=== PATIENT | male | born 1960 | race American Indian/Alaskan Native ===

== ENCOUNTER 2017-06-30 20:34 | Emergency (ER) | payer OTHER ==
[2017-06-30 21:07] VITALS: BP 143/81
[2017-06-30] MEDS ORDERED: NORCO 5/325 PO ONE (21:39)
--- NOTE | 2017-06-30 21:46 | Emergency Department Report ---
HPI - General Chief Complaint: Multiple Trauma Time Seen by Provider: 06/30/17 21:32 - HPI HPI: 57-year-old -[place] male presents to the emergency department through triage with complaint of a fall from 8 feet up off of a scaffold onto the right side of his body. He thinks that he did hit his head and had some loss of consciousness. He was found by one of his coworkers who helped him up, into the car, into the hospital. He complains of some pain to the back of the head, the right side of the neck, the right shoulder, the right wrist, the right hip, and the right side of his mid to lower back. He did not take anything for her symptoms prior to presentation. He denies any past medical history. He does not have a primary care physician. This event occurred around 7:30 PM this evening. ED Past Medical Hx - Past Medical History Previous Medical History?: No - Surgical History Past Surgical History?: No - Social History Smoking Status: Current Every Day Smoker Substance Use Type: Marijuana - Medications Home Medications: Home Medications Medication Instructions Recorded Confirmed Last Taken Type HYDROcodone/APAP 5-325 [Henderson 1 each PO Q6HR PRN #10 tablet 07/01/17 Unknown Rx 5/325] ED Review of Systems ROS: Stated complaint: FALL HEAD BACK HIP EYE BLURRY Other details as noted in HPI Comment: All other systems reviewed and negative Constitutional: denies: chills, fever Eyes: denies: eye pain, eye discharge, vision change ENT: denies: ear pain, throat pain Respiratory: denies: cough, shortness of breath, wheezing Cardiovascular: denies: chest pain, palpitations Gastrointestinal: denies: abdominal pain, nausea, diarrhea Genitourinary: denies: urgency, dysuria Musculoskeletal: back pain, arthralgia, myalgia Skin: denies: rash, lesions Neurological: headache. denies: numbness Physical Exam - Physical Exam Vital Signs: Vital Signs 06/30/17 21:01 Temperature 98.6 F Pulse Rate 92 H Respiratory 18 Rate Blood Pressure 143/81 O2 Sat by Pulse 97 Oximetry ED Course Vital Signs 06/30/17 21:01 Temperature 98.6 F Pulse Rate 92 H Respiratory 18 Rate Blood Pressure 143/81 O2 Sat by Pulse 97 Oximetry ED Medical Decision Making - Lab Data Result diagrams: 06/30/17 21:40 06/30/17 21:40 Critical care attestation.: If time is entered above; I have spent that time in minutes in the direct care of this critically ill patient, excluding procedure time. ED Disposition Clinical Impression: Right hip pain Fall from scaffold Qualifiers: Encounter type: initial encounter Qualified Code(s): W12.XXXA - Fall on and from scaffolding, initial encounter Headache Qualifiers: Headache type: unspecified Headache chronicity pattern: unspecified pattern Right shoulder pain Qualifiers: Chronicity: acute Qualified Code(s): M25.511 - Pain in right shoulder Back pain Qualifiers: Back pain location: low back pain Chronicity: acute Back pain laterality: right Sciatica presence: without sciatica Qualified Code(s): M54.5 - Low back pain Disposition: TO HOME OR SELFCARE Is pt being admited?: No Condition: Stable Instructions: Arthralgia (ED), Fall Prevention (ED), Back Pain (ED) Additional Instructions: Please follow-up with your primary care physician in the next few days. I have given you a referral for 2 different orthopedic groups to follow up regarding your joint pain after your fall. Return to the emergency Department with any worsening of her symptoms or any acute distress. You have been prescribed a medication that is sedating and therefore should not be taken prior to driving, working, and responsible for children and in no way should be mixed with alcohol of any quantity. Prescriptions: HYDROcodone/APAP 5-325 [Henderson 5/325] 1 each PO Q6HR PRN #10 tablet PRN Reason: Pain Referrals: WILFRED PARRA MD [Primary Care Provider] - 3-5 Days MOHAN WEBB MD [Staff Physician] - 3-5 Days [facility] [Provider Group] - 3-5 Days Time of Disposition: 00:43
[2017-06-30 21:55] LABS: Basophils # (Auto) 0.1 K/mm3 (0.0-0.1); Eosinophils # (Auto) 0.3 K/mm3 (0.0-0.4); Eosinophils % (Auto) 3.3 % (0.0-4.3); Hematocrit 43.7 % (35.5-45.6); Hemoglobin 14.7 gm/dl (11.8-15.2); Lymphocytes # (Auto) 2.4 K/mm3 (1.2-5.4); Lymphocytes % (Auto) 28.7 % (13.4-35.0); Mean Corpuscular HGB Conc 34 % (32-34); Mean Corpuscular Hemoglobin 34 pg (28-32); Mean Corpuscular Volume 103 fl (84-94); Monocytes # (Auto) 0.7 K/mm3 (0.0-0.8); Monocytes % (Auto) 8.6 % (0.0-7.3); Platelet Count 186 K/mm3 (140-440); Red Blood Count 4.26 M/mm3 (3.65-5.03); Red Cell Distribution Width 14.3 % (13.2-15.2)
[2017-06-30 22:12] LABS: Alanine Aminotransferase 13 units/L (7-56); Albumin 4.5 g/dL (3.9-5); BUN/Creatinine Ratio 18; Blood Urea Nitrogen 16 mg/dL (9-20); Calcium 9.2 mg/dL (8.4-10.2); Hemolysis Index 4
--- NOTE | 2017-07-01 00:16 | Cat Scan Report ---
FINAL REPORT EXAM: CT HEAD/BRAIN WO CON HISTORY: head pain, LOC s/p 8 ft fall TECHNIQUE: Standard unenhanced CT of the head at 5.0 millimeter axial increments. PRIORS: None. FINDINGS: The ventricular system is normal in size and configuration. There is no evidence for parenchymal volume loss. There is no evidence for mass lesion, mass effect, midline shift, acute intracranial hemorrhage, or acute ischemia/ infarction. No evidence for acute skull fracture is seen. No abnormality in the overlying scalp soft tissues is seen. Visualized paranasal sinuses are clear. IMPRESSION: Negative CT of the head. No acute intracranial process noted.
--- NOTE | 2017-07-01 00:16 | Cat Scan Report ---
FINAL REPORT EXAM: CT CERVICAL SPINE WO CON HISTORY: head pain, LOC s/p 8 ft fall TECHNIQUE: Standard CT cervical spine obtained at 2.5 mm axial increments. Coronal and sagittal reconstruction was also performed. PRIORS: None. FINDINGS: The vertebral bodies are intact. There is no evidence for acute fracture. There is no evidence for paravertebral soft tissue swelling. Alignment is maintained. There is moderate to severe disc space narrowing from C3 through C7. Large spurs anteriorly at C5 through C7 are noted. Facet joint degenerative changes at C7-T1 are noted, greater on the left. IMPRESSION: No acute abnormality of the cervical spine. Moderate to severe disc space narrowing from C3 through C7.
--- NOTE | 2017-07-01 00:17 | XRay Report ---
FINAL REPORT PROCEDURE: XR HIPS BILAT 2V W/PELVIS TECHNIQUE: Bilateral hip radiographs, 2 views each, including AP view of the pelvis. HISTORY: PAIN IN BACK, HIP S/P 8 FT FALL, +LOC COMPARISON: No prior studies are available for comparison. FINDINGS: Bilateral sacroiliac joints are unremarkable. Bilateral hip joints demonstrate normal alignment with normal joint spaces. There is evidence of subarticular cyst formation involving the right acetabulum. An acute fracture is not identified. Soft tissues are unremarkable. IMPRESSION: No acute fracture Subarticular cyst formation of right acetabulum most likely represents osteoarthritis.
--- NOTE | 2017-07-01 00:17 | XRay Report ---
FINAL REPORT PROCEDURE: XR SHOULDER 2+V RT TECHNIQUE: Right shoulder radiographs including AP views in internal and external rotation and abduction. CPT 45488 HISTORY: Shoulder pain COMPARISON: No prior studies are available for comparison. FINDINGS: Fracture (s) and/or Dislocation(s): None . Joint space(s): Narrowing of the acromioclavicular joint space is noted with mild degree osteophyte formation.. Soft tissues: Normal . Bone mineralization: Normal . Foreign bodies: None . IMPRESSION: Osteoarthritis right acromioclavicular joint.
--- NOTE | 2017-07-01 00:17 | XRay Report ---
FINAL REPORT PROCEDURE: XR CHEST ROUTINE 2V TECHNIQUE: PA and lateral chest radiographs were obtained. CPT 87847 HISTORY: Chest wall pain COMPARISON: No prior studies are available for comparison. FINDINGS: Heart: Normal. Mediastinum/Vessels: Normal. Lungs/Pleural space: Normal. Bony thorax: No acute osseous abnormality. Other: IMPRESSION: Normal examination.
--- NOTE | 2017-07-01 00:17 | XRay Report ---
FINAL REPORT PROCEDURE: XR SPINE LUMBOSACRAL 2-3V TECHNIQUE: Lumbar spine radiographs, including AP, lateral, and lumbosacral spot views. CPT 46975 HISTORY: pain in back and hip s/p 8 ft fall, +LOC COMPARISON: No prior studies are available for comparison. FINDINGS: Alignment: Normal. Vertebral body heights/Disk spaces: There is narrowing of the L5-S1 disc space with vacuum phenomenon.. Fracture(s): None. Facets: Normal. Bone mineralization: Normal. IMPRESSION: Degenerative disc disease at L5-S1.
--- NOTE | 2017-07-01 00:17 | Ultrasound Report ---
FINAL REPORT PROCEDURE: US ABDOMEN COMPLETE TECHNIQUE: Real-time sonography in multiple planes of the abdomen was performed with image documentation. CPT 67541 HISTORY: trauma, abd pain COMPARISON: No prior studies are available for comparison. FINDINGS: Liver: Normal size and echotexture with no evidence of cystic or solid mass lesions. Gallbladder: Fluid filled. No gallstones, wall thickening, pericholecystic fluid, or sonographic Scott's sign. Intrahepatic bile ducts: Normal caliber . Extrahepatic bile ducts: Normal caliber. Pancreas: Visualized pancreatic head and body demonstrate normal echotexture. Aorta: Proximal aorta measures 2.2 centimeters in diameter. Mid and distal aorta is not well visualized due to bowel gas.. IVC: Visualized portions appear normal. RIGHT kidney: Normal echotexture. No focal renal mass, calculus, or hydronephrosis. Length: 9.8 x 4.5 x 5.1cm. LEFT kidney: Normal echotexture. No focal renal mass, calculus, or hydronephrosis . Length: 10.2 x 5.1 x 5.6cm. Spleen: Normal size and echotexture. No focal lesions. Intraperitoneal fluid: None . Other: None . IMPRESSION: Unremarkable study.
--- NOTE | 2017-07-01 00:17 | Cat Scan Report ---
FINAL REPORT EXAM: CT FACIAL BONES WO CON HISTORY: head pain, LOC s/p 8 ft fall TECHNIQUE: Standard unenhanced CT facial bones at 2.5 mm axial increments with coronal and sagittal reconstruction PRIORS: None. FINDINGS: No evidence for acute bony fracture is noted. The frontal, ethmoid, maxillary, and sphenoid sinuses are clear with no evidence for air-fluid levels or mucosal thickening. Nasal septum is midline. The orbits are intact. The orbital globes are normal. The visualized mastoid air cells are also clear. No overlying soft tissue abnormality is seen. IMPRESSION: Normal CT of the facial bones. No evidence for acute fracture.
== END 2017-07-01 01:02 | disposition home or self-care (01) ==
LOC: ED 20:34
DX: M25.551 Pain in right hip (principal); M25.511 Pain in right shoulder; R51 Headache; F17.200 Nicotine dependence, unspecified, uncomplicated; F12.10 Cannabis abuse, uncomplicated
CPT/HCPCS: 36415; 70450; 70486; 71046; 72100; 72125; 73521; 76700; 80053; 82550; 85025; 86850; 86900; 86901; 99285

== ENCOUNTER 2020-09-09 11:39 | Emergency (ER) | payer SELFPAY ==
[2020-09-09] MEDS ORDERED: SODIUM CHLORIDE 0.9% 1000 ML 1,000 ML IV ONE (11:48)
[2020-09-09] MEDS ORDERED: fentaNYL 100 MCG/2 ML INJ IV ONE (11:48)
[2020-09-09] MEDS ORDERED: SODIUM CHLORIDE 0.9% 1000 ML 1,000 ML ONE (11:49)
[2020-09-09] MEDS ORDERED: fentaNYL 100 MCG/2 ML INJ ONE (11:49)
[2020-09-09 12:07] LABS: Basophils % (Auto) 0.5 % (0.0-1.8); Eosinophils # (Auto) 0.2 K/mm3 (0.0-0.4); Hematocrit 41.5 % (35.5-45.6); Hemoglobin 14.5 gm/dl (11.8-15.2); Lymphocytes # (Auto) 2.6 K/mm3 (1.2-5.4); Lymphocytes % (Auto) 32.4 % (13.4-35.0); Mean Corpuscular HGB Conc 35 % (32-34); Mean Corpuscular Volume 103 fl (84-94); Monocytes # (Auto) 0.6 K/mm3 (0.0-0.8); Monocytes % (Auto) 7.3 % (0.0-7.3); Platelet Count 213 K/mm3 (140-440); Red Blood Count 4.02 M/mm3 (3.65-5.03); Red Cell Distribution Width 14.8 % (13.2-15.2)
--- NOTE | 2020-09-09 12:07 | Emergency Department Report ---
HPI - General Chief Complaint: Fall Time Seen by Provider: 09/09/20 11:47 - HPI HPI: 60-year-old male with no known past medical history brought in by friend in his car after the patient was found down on the ground after a fall from a 25 feet high roof. The patient states that he was doing work on top of the roof when he discovered a wasps nest. He got startled and fell backwards off of the roof onto his back. He did lose consciousness for a few seconds. After regaining consciousness he says that he was unable to move or feel his feet. One of his friends found him on the ground like this and picked him up and put him in the passenger seat of his truck and drove him to our emergency room. The patient says that he is now regained sensation and motor function of his lower extremities but has paresthesias in his bilateral legs and feet. He also complains of neck pain, back pain involving both the lumbar and thoracic spine, and pain all over and all of his extremities. He denies any headache, vision change, double vision, chest pain, shortness of breath, abdominal pain, nausea/vomiting, focal weakness, saddle anesthesia, bowel/bladder incontinence/retention, or any other complaints. He says he does not take any daily medications. ED Past Medical Hx - Past Medical History Previous Medical History?: No - Surgical History Past Surgical History?: No - Social History Smoking Status: Current Every Day Smoker Substance Use Type: Marijuana - Medications Home Medications: Home Medications Medication Instructions Recorded Confirmed Last Taken Type HYDROcodone/APAP 5-325 [Lawrence 1 each PO Q6HR PRN #10 tablet 07/01/17 Unknown Rx 5/325] ED Review of Systems ROS: Stated complaint: FALL Other details as noted in HPI Constitutional: denies: chills, fever Eyes: denies: eye pain, vision change ENT: denies: throat pain, epistaxis, congestion Respiratory: denies: cough, shortness of breath Cardiovascular: denies: chest pain, palpitations Gastrointestinal: denies: abdominal pain, nausea, vomiting Genitourinary: denies: dysuria, frequency Musculoskeletal: back pain, other (neck pain, pain in b/l shoulders, hips, and ankles). denies: arthralgia Skin: denies: rash, lesions Neurological: paresthesias. denies: headache, weakness, numbness Physical Exam - Physical Exam Vital Signs: Vital Signs 09/09/20 09/09/20 09/09/20 11:47 12:00 12:30 Temperature Pulse Rate 65 67 66 Respiratory 17 26 H 13 Rate Blood Pressure 165/87 143/76 150/77 Blood Pressure [Right] O2 Sat by Pulse 94 96 96 Oximetry 09/09/20 09/09/20 12:35 18:28 Temperature 98.4 F Pulse Rate 56 L Respiratory 13 Rate Blood Pressure Blood Pressure 151/79 [Right] O2 Sat by Pulse 98 100 Oximetry Physical Exam: GENERAL: Well developed and well nourished. No acute distress. HEAD: Normocephalic. No obvious signs of trauma. No raccoon's eyes, alfonso sign, or hemotympanum ENT: Slightly dry mucous membranes. EYES: Extraocular movements are intact. Pupils are equal round and reactive to light bilaterally NECK: C-collar is in place. Trachea is midline. LUNGS: Nonlabored breathing. Equal chest rise bilaterally. Clear to auscultation bilaterally. CARDIOVASCULAR: Regular rate and rhythm. No murmurs or rubs. VASCULAR: Cap refill < 2 seconds. 2+ radial and DP pulses b/l ABDOMEN: Abdomen is soft and nondistended. There is no significant tenderness, guarding or rebound. SKIN: Skin is warm and dry NEURO: Patient is awake, alert, and oriented. powder coater II-XII grossly intact. No focal deficits. Normal motor exam throughout, although this is highly limited due to the patient's restricted range of motion secondary to pain. The patient has normal sensation to light touch throughout bilateral lower extremities, upper extremities, torso, and head/face. Normal speech. MUSCULOSKELETAL: The left lower extremity is externally rotated and slightly shortened compared to the right. Otherwise no gross deformities. Patient's pelvis is stable although he does have left hip tenderness. He has full strength and range of motion in all 5 fingers and toes as well as wrists bilaterally. The patient has diffuse tenderness of his bilateral ankles, knees, and hips. Unable to assess full range of motion of the bilateral shoulders due to the patient's pain. He has no focal tenderness of the shoulders, clavicles, or bilateral arms. Downgoing Babinski reflexes bilaterally. BACK/SPINE/RECTAL: The patient was rolled using spine precautions and there is midline tenderness noted throughout portions of both the lumbar and thoracic spine bilaterally without any palpable step-offs. Rectal examination reveals normal rectal tone. ED Medical Decision Making - Lab Data Result diagrams: 09/09/20 11:47 09/09/20 11:47 Lab Results 09/09/20 09/09/20 09/09/20 Range/Units 11:47 11:47 11:47 WBC 8.1 (4.5-11.0) K/mm3 RBC 4.02 (3.65-5.03) M/mm3 Hgb 14.5 (11.8-15.2) gm/dl Hct 41.5 (35.5-45.6) % MCV 103 H (84-94) fl MCH 36 H (28-32) pg MCHC 35 H (32-34) % RDW 14.8 (13.2-15.2) % Plt Count 213 (140-440) K/mm3 Lymph % (Auto) 32.4 (13.4-35.0) % Tillman % (Auto) 7.3 (0.0-7.3) % Eos % (Auto) 2.0 (0.0-4.3) % Baso % (Auto) 0.5 (0.0-1.8) % Lymph # (Auto) 2.6 (1.2-5.4) K/mm3 Tillman # (Auto) 0.6 (0.0-0.8) K/mm3 Eos # (Auto) 0.2 (0.0-0.4) K/mm3 Baso # (Auto) 0.0 (0.0-0.1) K/mm3 Seg Neutrophils % 57.8 (40.0-70.0) % Seg Neutrophils # 4.7 (1.8-7.7) K/mm3 PT 12.7 (12.2-14.9) Sec. INR 0.90 (0.87-1.13) APTT 27.3 (24.2-36.6) Sec. Sodium 142 (137-145) mmol/L Potassium 4.5 (3.6-5.0) mmol/L Chloride 107.6 H (98-107) mmol/L Carbon Dioxide 24 (22-30) mmol/L Anion Gap 15 mmol/L BUN 11 (9-20) mg/dL Creatinine 0.9 (0.8-1.3) mg/dL Estimated GFR > 60 ml/min BUN/Creatinine Ratio 12 % Glucose 97 (75-100) mg/dL Calcium 9.1 (8.4-10.2) mg/dL Total Bilirubin 0.30 (0.1-1.2) mg/dL AST 16 (5-40) units/L ALT 9 (7-56) units/L Alkaline Phosphatase 88 (35-129) units/L Total Creatine Kinase 63 (55-170) units/L Troponin T (0.00-0.029) ng/mL Total Protein 7.1 (6.3-8.2) g/dL Albumin 4.3 (3.9-5) g/dL Albumin/Globulin Ratio 1.5 % Urine Color (Yellow) Urine Turbidity (Clear) Urine pH (5.0-7.0) Ur Specific Gilmer (1.003-1.030) Urine Protein (Negative) mg/dL Urine Glucose (UA) (Negative) mg/dL Urine Ketones (Negative) mg/dL Urine Blood (Negative) Urine Nitrite (Negative) Urine Bilirubin (Negative) Urine Urobilinogen (<2.0) mg/dL Ur Leukocyte Esterase (Negative) Urine WBC (Auto) (0.0-6.0) /HPF Urine RBC (Auto) (0.0-6.0) /HPF U Epithel Cells (Auto) (0-13.0) /HPF Urine Opiates Screen Urine Methadone Screen Ur Barbiturates Screen Ur Phencyclidine Scrn Ur Amphetamines Screen U Benzodiazepines Scrn Urine Cocaine Screen U Marijuana (THC) Screen Drugs of Abuse Note Plasma/Serum Alcohol (0-0.07) % Blood Type Antibody Screen 09/09/20 09/09/20 09/09/20 Range/Units 11:47 11:47 11:47 WBC (4.5-11.0) K/mm3 RBC (3.65-5.03) M/mm3 Hgb (11.8-15.2) gm/dl Hct (35.5-45.6) % MCV (84-94) fl MCH (28-32) pg MCHC (32-34) % RDW (13.2-15.2) % Plt Count (140-440) K/mm3 Lymph % (Auto) (13.4-35.0) % Tillman % (Auto) (0.0-7.3) % Eos % (Auto) (0.0-4.3) % Baso % (Auto) (0.0-1.8) % Lymph # (Auto) (1.2-5.4) K/mm3 Tillman # (Auto) (0.0-0.8) K/mm3 Eos # (Auto) (0.0-0.4) K/mm3 Baso # (Auto) (0.0-0.1) K/mm3 Seg Neutrophils % (40.0-70.0) % Seg Neutrophils # (1.8-7.7) K/mm3 PT (12.2-14.9) Sec. INR (0.87-1.13) APTT (24.2-36.6) Sec. Sodium (137-145) mmol/L Potassium (3.6-5.0) mmol/L Chloride (98-107) mmol/L Carbon Dioxide (22-30) mmol/L Anion Gap mmol/L BUN (9-20) mg/dL Creatinine (0.8-1.3) mg/dL Estimated GFR ml/min BUN/Creatinine Ratio % Glucose (75-100) mg/dL Calcium (8.4-10.2) mg/dL Total Bilirubin (0.1-1.2) mg/dL AST (5-40) units/L ALT (7-56) units/L Alkaline Phosphatase (35-129) units/L Total Creatine Kinase (55-170) units/L Troponin T < 0.010 (0.00-0.029) ng/mL Total Protein (6.3-8.2) g/dL Albumin (3.9-5) g/dL Albumin/Globulin Ratio % Urine Color (Yellow) Urine Turbidity (Clear) Urine pH (5.0-7.0) Ur Specific Gilmer (1.003-1.030) Urine Protein (Negative) mg/dL Urine Glucose (UA) (Negative) mg/dL Urine Ketones (Negative) mg/dL Urine Blood (Negative) Urine Nitrite (Negative) Urine Bilirubin (Negative) Urine Urobilinogen (<2.0) mg/dL Ur Leukocyte Esterase (Negative) Urine WBC (Auto) (0.0-6.0) /HPF Urine RBC (Auto) (0.0-6.0) /HPF U Epithel Cells (Auto) (0-13.0) /HPF Urine Opiates Screen Urine Methadone Screen Ur Barbiturates Screen Ur Phencyclidine Scrn Ur Amphetamines Screen U Benzodiazepines Scrn Urine Cocaine Screen U Marijuana (THC) Screen Drugs of Abuse Note Plasma/Serum Alcohol < 0.01 (0-0.07) % Blood Type A POSITIVE Antibody Screen Negative 09/09/20 09/09/20 Range/Units Unknown Unknown WBC (4.5-11.0) K/mm3 RBC (3.65-5.03) M/mm3 Hgb (11.8-15.2) gm/dl Hct (35.5-45.6) % MCV (84-94) fl MCH (28-32) pg MCHC (32-34) % RDW (13.2-15.2) % Plt Count (140-440) K/mm3 Lymph % (Auto) (13.4-35.0) % Tillman % (Auto) (0.0-7.3) % Eos % (Auto) (0.0-4.3) % Baso % (Auto) (0.0-1.8) % Lymph # (Auto) (1.2-5.4) K/mm3 Tillman # (Auto) (0.0-0.8) K/mm3 Eos # (Auto) (0.0-0.4) K/mm3 Baso # (Auto) (0.0-0.1) K/mm3 Seg Neutrophils % (40.0-70.0) % Seg Neutrophils # (1.8-7.7) K/mm3 PT (12.2-14.9) Sec. INR (0.87-1.13) APTT (24.2-36.6) Sec. Sodium (137-145) mmol/L Potassium (3.6-5.0) mmol/L Chloride (98-107) mmol/L Carbon Dioxide (22-30) mmol/L Anion Gap mmol/L BUN (9-20) mg/dL Creatinine (0.8-1.3) mg/dL Estimated GFR ml/min BUN/Creatinine Ratio % Glucose (75-100) mg/dL Calcium (8.4-10.2) mg/dL Total Bilirubin (0.1-1.2) mg/dL AST (5-40) units/L ALT (7-56) units/L Alkaline Phosphatase (35-129) units/L Total Creatine Kinase (55-170) units/L Troponin T (0.00-0.029) ng/mL Total Protein (6.3-8.2) g/dL Albumin (3.9-5) g/dL Albumin/Globulin Ratio % Urine Color Straw (Yellow) Urine Turbidity Clear (Clear) Urine pH 6.0 (5.0-7.0) Ur Specific Gilmer 1.055 H (1.003-1.030) Urine Protein <15 mg/dl (Negative) mg/dL Urine Glucose (UA) Neg (Negative) mg/dL Urine Ketones Neg (Negative) mg/dL Urine Blood Neg (Negative) Urine Nitrite Neg (Negative) Urine Bilirubin Neg (Negative) Urine Urobilinogen < 2.0 (<2.0) mg/dL Ur Leukocyte Esterase Neg (Negative) Urine WBC (Auto) 1.0 (0.0-6.0) /HPF Urine RBC (Auto) 3.0 (0.0-6.0) /HPF U Epithel Cells (Auto) < 1.0 (0-13.0) /HPF Urine Opiates Screen Negative Urine Methadone Screen Negative Ur Barbiturates Screen Negative Ur Phencyclidine Scrn Negative Ur Amphetamines Screen Negative U Benzodiazepines Scrn Negative Urine Cocaine Screen Negative U Marijuana (THC) Screen Negative Drugs of Abuse Note Disclamer Plasma/Serum Alcohol (0-0.07) % Blood Type Antibody Screen - EKG Data -: EKG Interpreted by In - EKG Data 09/09/20 17:49 Sinus bradycardia. Normal axis. Normal intervals. No ectopy. No significant ST segment or T wave abnormalities. - Radiology Data Chest x-ray and pelvis x-ray revealed no obvious acute abnormalities or traumatic injuries. CT of the head reveals no acute abnormalities. CT of the cervical spine reveals findings consistent with DJD the but no evidence of fracture CT of the thoracic/lumbar spine reveals findings consistent with advanced DJD and disc bulging but no evidence of fractures CT of the chest/abdomen/pelvis with IV contrast reveals no obvious traumatic injuries or acute abnormalities with the exception of infrarenal abdominal aortic occlusion which is thought to be a chronic finding because it is associated with collateral circulation however, thrombosed dissection cannot be entirely excluded. X-rays of the bilateral shoulders, hips, femurs, knees, tib-fibs, ankles, and feet reveal no acute abnormalities. - Medical Decision Making 60-year-old male patient with no known past medical history brought in by his f riend after a 25 foot fall off the roof of the building landing on his back. +LOC. The patient was brought to our ambulance bay by a friend who drove him to the hospital. He was immediately placed in a c-collar upon arrival and was transported using a backboard into the ER. Patient complains of neck and mid/lower back pain as well as bilateral hip pain. Primary survey: Airway is intact. Patient speaking in full sentences. There are bilateral breath sounds and clear lung hancock b/l 2+ peripheral pulses in all 4 extremities including the radial pulses and DP pulse bilaterally. Normal BP Patient is slightly slow to answer but is alert and oriented x 4. Cranial nerves II-XII are grossly intact. Moving all 4 extremities with grossly normal strength. Normal sensation throughout upper and lower extremities as well as the torso and face bilaterally. Secondary survey: GENERAL: Well developed and well nourished. No acute distress. HEAD: Normocephalic. No obvious signs of trauma. No raccoon's eyes, alfonso sign, or hemotympanum ENT: Slightly dry mucous membranes. EYES: Extraocular movements are intact. Pupils are equal round and reactive to light bilaterally NECK: C-collar is in place. Trachea is midline. LUNGS: Nonlabored breathing. Equal chest rise bilaterally. Clear to auscultation bilaterally. CARDIOVASCULAR: Regular rate and rhythm. No murmurs or rubs. VASCULAR: Cap refill < 2 seconds. 2+ radial and DP pulses b/l ABDOMEN: Abdomen is soft and nondistended. There is no significant tenderness, guarding or rebound. SKIN: Skin is warm and dry NEURO: Patient is awake, alert, and oriented. powder coater II-XII grossly intact. No focal deficits. Normal motor exam throughout, although this is highly limited due to the patient's restricted range of motion secondary to pain. The patient has normal sensation to light touch throughout bilateral lower extremities, upper extremities, torso, and head/face. Normal speech. MUSCULOSKELETAL: The left lower extremity is externally rotated and slightly shortened compared to the right. Otherwise no gross deformities. Patient's pelvis is stable although he does have left hip tenderness. He has full strength and range of motion in all 5 fingers and toes as well as wrists bilaterally. The patient has diffuse tenderness of his bilateral ankles, knees, and hips. Unable to assess full range of motion of the bilateral shoulders due to the patient's pain. He has no focal tenderness of the shoulders, clavicles, or bilateral arms. Downgoing Babinski reflexes bilaterally. BACK/SPINE/RECTAL: The patient was rolled using spine precautions and there is midline tenderness noted throughout portions of both the lumbar and thoracic sp ine bilaterally without any palpable step-offs. Rectal examination reveals normal rectal tone. We will perform full trauma work-up including full set of labs, EKG, chest x- ray, and CT of the head to assess for evidence of intracranial hemorrhage given that the patient fell and hit his head and lost consciousness. We will also obtain CT of the C/T/L-spine to assess for evidence of fracture given that the patient has neck pain after fall from significant height as well as midline tenderness of the T/L-spine. Will obtain contrasted CT of the chest/abdomen/pelvis to assess for traumatic injuries and/or internal bleeding. Initial chest x-ray and pelvis x-ray are read as showing no acute abnormalities. Labs have resulted and reveal no significant leukocytosis or anemia. Creatinine is within normal range and there are no significant electrolyte abnormalities. Coags are grossly within normal limits. CT of the head reveals no acute abnormalities. CT of the cervical spine reveals findings consistent with DJD the but no evidence of fracture CT of the thoracic/lumbar spine reveals findings consistent with advanced DJD and areas of disc bulging but no evidence of fractures At 1:10 PM I received a call from the radiologist who read the CT of the chest/abdomen/pelvis with IV contrast. He states that although there are no findings to suggest any acute traumatic injuries, there is finding of infrarenal abdominal aortic occlusion, which is thought to be chronic in nature because it is associated with collateral circulation and distal reconstitution. However, thrombosed aortic dissection cannot be entirely excluded. I immediately placed a call to vascular surgery for consultation. At 1:51 PM I spoke with Graeme Martinez of vascular surgery regarding the case. He reviewed the imaging and states that it is his opinion that this represents a chronic finding but he will come assess the patient now and give his final assessment and recommendations. X-rays of the bilateral shoulders, hips, femurs, knees, tib-fibs, ankles, and feet reveal no acute abnormalities. At 3 PM, I spoke with Dr. Martinez vascular surgery again after he assessed the patient and he stated that the distal aortic occlusion finding is chronic in nature and can be followed up as an outpatient in his office. The patient has been educated about the importance of keeping this follow-up. At 4:05 PM I went to reassess the patient and he was resting comfortably in his bed. He states his pain at this time is minimal but he does feel very sore throughout. Repeat musculoskeletal exam at this time reveals that the patient has normal strength and range of motion throughout all joints of the bilateral upper and lower extremities, although the patient is moving them cautiously due to fear of pain. His c-collar was cleared at this time and the patient demonstrated full painless range of motion of the neck including flexion/extension and rotation bilaterally. Given that his imaging does not reveal any obvious acute traumatic injuries, although difficult to completely exclude given his advanced DJD, we will attempt to ambulate the patient and follow-up his urinalysis to ensure that there is no evidence of hematuria. We will give 30 mg of IV Toradol for further pain control. The patient was able to ambulate with steady gait. He reports his pain is well controlled. I explained the importance of following up with primary care doctor in 2 to 3 days or earlier as not all traumatic injuries can be entirely excluded in the ER and therefore it will be important that he is reassessed by another doctor shortly. In addition I explained the importance of following up with vascular surgery. I did caution the patient that he will likely be very sore for at least the next week or 2. I advised that he take Tylenol 1000 mg up to 3 times daily as well as ibuprofen 600 mg up to 3 times daily with food [id number] for the next 2 days and then as needed for pain. The patient expressed understanding and agreement with this plan of care. He was given strict return precautions. Critical Care Time: Yes Critical care time in (mins) excluding proc time.: 90 Critical care attestation.: If time is entered above; I have spent that time in minutes in the direct care of this critically ill patient, excluding procedure time. Critical care time was spent in the assessment/evaluation, work-up, and management of fall from extreme height with multiple potential critical injuries requiring trauma activation, thorough physical examination performed multiple times, interpretation of x-rays, EKGs, vital signs, IV fluids, consultation with specialist, and multiple reevaluations and reassessments. ED Disposition Clinical Impression: Fall from roof, Concussion, Contusion of back, Contusion of left hip and thigh, Contusion of right hip and thigh, DJD (degenerative joint disease), Chronic distal aortic occlusion Disposition: TO HOME OR SELFCARE Is pt being admited?: No Condition: Stable Instructions: Intermittent Claudication, Osteoarthritis, Contusion, Concussion, Adult, Post-Concussion Syndrome, How to Use Cold Therapy, Blunt Chest Trauma Additional Instructions: Please follow-up with a primary care doctor at [facility] over the next couple days. For pain/soreness you may take Tylenol 1000 mg up to 3 times daily as well as ibuprofen 600 mg up to 3 times daily taken with food. Return to the emergency department should you develop worsening symptoms, inability to tolerate anything by mouth, new neurologic symptoms, or any other new concerns. Referrals: GRAEME MARTINEZ MD [Staff Physician] - 3-5 Days [facility] [Provider Group] - 2-3 Days
--- NOTE | 2020-09-09 12:25 | XRay Report ---
CHEST 1 VIEW INDICATION / CLINICAL INFORMATION: Trauma. COMPARISON: 06/30/2017 FINDINGS: SUPPORT DEVICES: None. HEART / MEDIASTINUM: No significant abnormality. LUNGS / PLEURA: No significant pulmonary or pleural abnormality. No pneumothorax. ADDITIONAL FINDINGS: No significant additional findings. IMPRESSION: 1. No acute findings. Signer Name: Feroz Gudino MD Signed: 09/09/2020 12:21 PM Workstation Name: [id number]
--- NOTE | 2020-09-09 12:27 | Cat Scan Report ---
CT HEAD WITHOUT CONTRAST INDICATION / CLINICAL INFORMATION: Trauma. TECHNIQUE: All CT scans at this location are performed using CT dose reduction for ALARA by means of automated e xposure control. COMPARISON: Head CT 06/30/2017 FINDINGS: HEMORRHAGE: No evidence of intracranial hemorrhage or extra-axial fluid collection. EXTRA-AXIAL SPACES: Cortical sulci, sylvian fissures and basilar cisterns have an unremarkable appear ance. VENTRICULAR SYSTEM: The third and lateral ventricles are of normal size and configuration. CEREBRAL PARENCHYMA: No areas of abnormal brain parenchymal attenuation are identified. There is no i ndication of recent infarction. MIDLINE SHIFT OR HERNIATION: There is no mass effect. CEREBELLUM / BRAINSTEM: Brainstem and cerebellum have an unremarkable appearance. MIDLINE STRUCTURES:No abnormalities of the pituitary gland or pineal region are identified. INTRACRANIAL VESSELS:No abnormalities are identified on this noncontrast head CT. ORBITS: visualized portions of the orbits have an unremarkable appearance. SOFT TISSUES of HEAD: No significant abnormality. CALVARIUM: Evaluation of bone windows reveals no abnormalities. PARANASAL SINUSES / MASTOID AIR CELLS: Visualized portions of the paranasal sinuses are free from inf lammatory mucosal disease. Mastoid air cells are normally pneumatized. ADDITIONAL FINDINGS: None. IMPRESSION: 1. No significant intercranial abnormality. No interval change. Signer Name: Jhonny Hunter MD Signed: 09/09/2020 12:23 PM Workstation Name: [id number]
--- NOTE | 2020-09-09 12:31 | XRay Report ---
PELVIS 2 VIEWS INDICATION: Trauma. Pelvic pain. COMPARISON: Radiographs 06/30/2017 FINDINGS: No fracture or dislocation. Osteoarthrosis changes are noted, greater at the right than the left. IMPRESSION: 1. No acute findings. Signer Name: Dwayne Benavides MD Signed: 09/09/2020 12:26 PM Workstation Name: [id number]
[2020-09-09 12:36] LABS: Alanine Aminotransferase 9 units/L (7-56); Albumin 4.3 g/dL (3.9-5); BUN/Creatinine Ratio 12; Blood Urea Nitrogen 11 mg/dL (9-20); Calcium 9.1 mg/dL (8.4-10.2); Hemolysis Index 50
[2020-09-09 12:46] LABS: INR 0.9 (0.87-1.13); Partial Thromboplastin Time 27.3 Sec. (24.2-36.6)
--- NOTE | 2020-09-09 12:58 | Cat Scan Report ---
CT cervical spine wo con INDICATION / CLINICAL INFORMATION: 60 years Male; Trauma, fell off building . TECHNIQUE: Axial CT images of the cervical spine were obtained. Sagittal and coronal reformatted images were pr oduced. All CT scans at this location are performed using CT dose reduction for ALARA by means of aut omated exposure control. COMPARISON: None available. FINDINGS: POST-SURGICAL CHANGES: None. ALIGNMENT: There is mild curvature the cervical spine, convex toward the right at. There is also a sl ight reversal the cervical lordosis without significant spondylolisthesis at. VERTEBRAE: There is disc space narrowing with associated endplate changes from C4-5 to C6-7. Milder f indings are noted at C3-4. However, there is no clear CT evidence of acute fracture involving the cer vical spine. INTRAVERTEBRAL DISCS: The left facet and uncovertebral joint hypertrophy at C3-4 results in moderate left neural foraminal narrowing at. The spondylosis at C4-5 appears to efface the ventral subarachnoi d space. There is moderate left and mild right neural foraminal narrowing. The spondylosis at C5-6 also effaces the subarachnoid space at. There is mild left neural foraminal n arrowing at. There is moderate to marked foraminal narrowing bilaterally at C6-7. PARASPINAL SOFT TISSUES: No prevertebral soft tissue fluid collections are identified. ADDITIONAL FINDINGS: None. IMPRESSION: 1. There are multilevel degenerative the changes involving cervical spine as detailed above. 2. There is no clear CT evidence of acute fracture involving the cervical spine. Signer Name: Noam Ng MD Signed: 09/09/2020 12:53 PM Workstation Name: [id number]
--- NOTE | 2020-09-09 13:01 | Cat Scan Report ---
CT thoracic spine wo con INDICATION / CLINICAL INFORMATION: 60 years Male; Trauma. TECHNIQUE: Axial CT images of the thoracic spine were obtained. Sagittal and coronal reformatted images were pr oduced. All CT scans at this location are performed using CT dose reduction for ALARA by means of aut omated exposure control. COMPARISON: None available. FINDINGS: POST-SURGICAL CHANGES: None. ALIGNMENT: There is mild curvature the upper thoracic spine, convex toward the left at. There is no s ignificant spondylolisthesis. VERTEBRAE: There is notable endplate sclerosis at T6 as 7 at. Milder changes involving adjacent segme nts. However, there is no clear CT evidence of acute compression fracture of the thoracic spine. INTERVERTEBRAL DISCS: There is disc space narrowing with endplate sclerosis as noted above. However, there is no clear CT evidence of significant bony spinal stenosis involving thoracic spine. PARASPINAL SOFT TISSUES: No significant abnormality. ADDITIONAL FINDINGS: None. IMPRESSION: 1. There is no CT evidence of acute compression fracture involving the thoracic spine. Signer Name: Noam Ng MD Signed: 09/09/2020 12:57 PM Workstation Name: [id number]
--- NOTE | 2020-09-09 13:07 | Cat Scan Report ---
CT lumbar spine wo con INDICATION / CLINICAL INFORMATION: 60 years Male; Trauma. TECHNIQUE: Axial CT images of the lumbar spine were obtained with sagittal and coronal reconstructions. All CT s cans at this location are performed using CT dose reduction for ALARA by means of automated exposure control. COMPARISON: None available. FINDINGS: POST-SURGICAL CHANGES: None. ALIGNMENT: There is slight anterolisthesis at L5-S1 with findings most consistent with bilateral spon dylolysis. There is also slight curvature of the lumbar spine, convex toward the left. There is loss of usual lumbar lordosis. VERTEBRAE: There is marked disc space narrowing at L5-S1 with vacuum disc phenomenon and prominent en dplate sclerosis and cystic changes at. There is no CT evidence of acute compression fracture involvi ng lumbar spine. INTERVERTEBRAL DISCS: The posterior spondylosis at L5-S1 appears to mildly flatten the ventral thecal sac. Additionally, the neural foraminal narrowing encroaches on the L5 nerve root sheaths bilaterall y at. The disc bulge and facet joint/ligamentum flavum hypertrophy at L4-5 appears result in mild spinal st enosis at. The neural foramen are patent. The disc bulge at L3-L4 mildly deforms the ventral thecal sac.. Additionally, there appears to be a l eft foraminal and far lateral disc protrusion which mildly encroaches on the left far lateral L3 nerv e root sheath. There is no CT evidence of significant stenosis at L1-L2 3. PARASPINAL SOFT TISSUES: No significant abnormality. ADDITIONAL FINDINGS: None. IMPRESSION: 1. There is slight anterolisthesis at L5-S1 with bilateral spondylolysis and pronounced degenerative changes as described. The neural from narrowing encroaches on the exiting L5 nerve root sheaths bilat erally. 2. There is mild spinal stenosis at L4-5. 3. There is a left foraminal and far lateral disc protrusion at L3-4 which appears to encroach on the far lateral left L3 nerve root sheath. 4. There is no CT evidence of acute fracture involving the lumbar spine. Signer Name: Noam Ng MD Signed: 09/09/2020 1:02 PM Workstation Name: [id number]
--- NOTE | 2020-09-09 13:12 | Cat Scan Report ---
CT chest, abdomen, and pelvis with contrast INDICATION : Trauma, fell off building omni 300 100ml. TECHNIQUE: 100 mL of intravenous contrast administered.. All CT scans at this location are performe d using CT dose reduction for ALARA by means of automated exposure control. COMPARISON: None FINDINGS: Bones: No acute fracture identified. There is advanced degenerative changes at L5/S1 and also in the hips. Bilateral L5 pars defects are present with no significant listhesis. Chest: The heart and great vessels appear unremarkable. No pathologic mediastinal adenopathy. There are emphysematous changes in the lungs with no consolidation or effusion. No pulmonary laceration or pneumothorax. Abdomen/pelvis: The liver, gallbladder, spleen, pancreas, adrenals, left kidney, and proximal GI tra ct appear unremarkable. There is a tiny simple cyst arising from the lower pole the right kidney. There is either a thrombosed dissection or crescentic soft plaque in the infrarenal abdominal aorta w hich becomes occlusive just above the level of the bifurcation into the common iliac arteries. Distal flow is reconstituted via collateral vessels at the level of each respective CAKE WR[employer]. There is no surrou nding stranding or inflammatory change in the retroperitoneum. The prostate is enlarged and indents the bladder base. There is mild bladder wall thickening which ca n be seen with chronic partial outlet obstruction but otherwise no mass or stone disease. No pelvic f ree fluid. There is colonic diverticulosis with no acute inflammatory change identified. The appendix is normal. IMPRESSION: 1. No clearly acute abnormality identified. 2. 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 COMMUNICATION: Time of Communication (REHAB/PRE VOCATIONAL COUNSELOR/CDT): 12:07 PM Licensed Practitioner Receiving Report: Dr. Tucker Signer Name: Hubert Howell MD Signed: 09/09/2020 1:07 PM Workstation Name: [id number]
--- NOTE | 2020-09-09 13:12 | Cat Scan Report ---
CT chest, abdomen, and pelvis with contrast INDICATION : Trauma, fell off building omni 300 100ml. TECHNIQUE: 100 mL of intravenous contrast administered.. All CT scans at this location are performe d using CT dose reduction for ALARA by means of automated exposure control. COMPARISON: None FINDINGS: Bones: No acute fracture identified. There is advanced degenerative changes at L5/S1 and also in the hips. Bilateral L5 pars defects are present with no significant listhesis. Chest: The heart and great vessels appear unremarkable. No pathologic mediastinal adenopathy. There are emphysematous changes in the lungs with no consolidation or effusion. No pulmonary laceration or pneumothorax. Abdomen/pelvis: The liver, gallbladder, spleen, pancreas, adrenals, left kidney, and proximal GI tra ct appear unremarkable. There is a tiny simple cyst arising from the lower pole the right kidney. There is either a thrombosed dissection or crescentic soft plaque in the infrarenal abdominal aorta w hich becomes occlusive just above the level of the bifurcation into the common iliac arteries. Distal flow is reconstituted via collateral vessels at the level of each respective CAR CLEANING SUPERVISOR. There is no surrou nding stranding or inflammatory change in the retroperitoneum. The prostate is enlarged and indents the bladder base. There is mild bladder wall thickening which ca n be seen with chronic partial outlet obstruction but otherwise no mass or stone disease. No pelvic f ree fluid. There is colonic diverticulosis with no acute inflammatory change identified. The appendix is normal. IMPRESSION: 1. No clearly acute abnormality identified. 2. 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 COMMUNICATION: Time of Communication (LOT TECHNICIAN/CDT): 12:07 PM Licensed Practitioner Receiving Report: Dr. Tucker Signer Name: Hubert Howell MD Signed: 09/09/2020 1:07 PM Workstation Name: [email or web address]
--- NOTE | 2020-09-09 14:56 | Consultation ---
History of Present Illness - Reason for Consult Consult date: 09/09/20 Aortic Occlusion Requesting physician: DIONY BILLS - History of Present Illness The patient is a 60-year-old male with a history of tobacco abuse who was climbing a ladder onto his roof when he was apprised by a hornet's nest. He fell approximately 25 feet onto his back and reports a loss of consciousness. Upon regaining consciousness he was unable to move his lower extremities and was discovered by a friend who transported him by private vehicle to the emergency department. His work-up in the emergency department included CT scans of his head, C-spine, T-spine, L-spine, chest, abdomen and pelvis. The CTA of his abdomen pelvis demonstrated an infrarenal aortic occlusion. The patient reports a history of calf claudication that began years ago. Over the past several years that progressed to buttock and hip claudication that has progressively worsened to a very short distance hip and buttock claudication. He states he is only able to walk several blocks before he has to stop secondary to his hip and buttock claudication. He denies any erectile dysfunction. He has no additional complaints at this time. Past History Past Medical History: other (Claudication) Past Surgical History: hernia repair (Left inguinal hernia repair) Social history: smoking (20+ years) Medications and Allergies Allergies Allergy/AdvReac Type Severity Reaction Status Date / Time No Known Allergies Allergy Unverified 06/30/17 21:07 Home Medications Medication Instructions Recorded Confirmed Last Taken Type HYDROcodone/APAP 5-325 [[place] 1 each PO Q6HR PRN #10 tablet 07/01/17 Unknown Rx 5/325] Review of Systems All systems: negative Exam - Constitutional Vitals: Temp Pulse Resp BP Pulse Ox 98.4 F 66 13 150/77 98 09/09/20 12:35 09/09/20 12:30 09/09/20 12:30 09/09/20 12:30 09/09/20 12:35 General appearance: Present: no acute distress - Neck Neck: Present: supple - Respiratory Respiratory effort: normal - Cardiovascular Rhythm: regular - Extremities Extremities: no ischemia Extremity abnormal: pulses diminished (Nonpalpable femoral or pedal pulses bilaterally) - Abdominal General gastrointestinal: Present: soft, non-tender, non-distended Male genitourinary: Present: deferred - Rectal Rectal Exam: deferred - Integumentary Integumentary: Present: clear Results - Labs CBC & Chem 7: 09/09/20 11:47 09/09/20 11:47 Labs: Abnormal lab results 09/09/20 09/09/20 Range/Units 11:47 11:47 MCV 103 H (84-94) fl MCH 36 H (28-32) pg MCHC 35 H (32-34) % Chloride 107.6 H (98-107) mmol/L - Imaging and Cardiology CT scan - abdomen: image reviewed CT scan - chest: image reviewed Assessment and Plan The patient is a 60-year-old male with a history of tobacco abuse and buttock claudication who had a CTA of his abdomen pelvis secondary to a fall. The images demonstrate an infrarenal aortic occlusion with reconstitution of his common femoral arteries which is consistent with a chronic occlusion of the infrarenal aorta. The patient has short distance buttock claudication which I explained to him could be potentially treated however there are multiple options. I will have him follow-up as an outpatient to better discuss these options. I provided the patient with a card so that he will have the i nformation can call to schedule an appointment. At that time we will discuss the options and he can decide if he would like to proceed. The patient expressed understanding and agrees with the plan.
--- NOTE | 2020-09-09 15:01 | XRay Report ---
BILATERAL TIBIA-FIBULA 2 VIEW(S) INDICATION / CLINICAL INFORMATION: Trauma COMPARISON: None available. FINDINGS: BONES / JOINT(S): No acute fracture or subluxation. No significant arthritis. SOFT TISSUES: No significant abnormality. ADDITIONAL FINDINGS: None. BILATERAL ANKLE 4 VIEW(S) INDICATION / CLINICAL INFORMATION: Trauma COMPARISON: None available. FINDINGS: BONES / JOINT(S): No acute fracture or subluxation. No significant arthritis. SOFT TISSUES: No significant abnormality. ADDITIONAL FINDINGS: None. Signer Name: Hardik Donovan DO Signed: 09/09/2020 2:57 PM Workstation Name: [email or web address] [employer] [id number]
--- NOTE | 2020-09-09 15:01 | XRay Report ---
BILATERAL SHOULDERS 3 VIEWS INDICATION: Trauma. COMPARISON: None. IMPRESSION: No acute osseous or soft tissue abnormality. 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 Signer Name: Noel Molina Jr, MD Signed: 09/09/2020 2:56 PM Workstation Name: [id number]
--- NOTE | 2020-09-09 15:04 | XRay Report ---
XR hips BILAT 2V w/pelvis INDICATION / CLINICAL INFORMATION: Trauma. COMPARISON: None available. FINDINGS: BONES/JOINT(S): No acute fracture or subluxation. Mild DJD of both hips. SOFT TISSUES: No significant abnormality. ADDITIONAL FINDINGS: None. Signer Name: Gilberto Fay MD Signed: 09/09/2020 3:00 PM Workstation Name: [email or web address]
--- NOTE | 2020-09-09 15:04 | XRay Report ---
XR knee BILAT 3V INDICATION / CLINICAL INFORMATION: Trauma. COMPARISON: None available. FINDINGS: BONES/JOINT(S): No acute fracture or subluxation. No significant degenerative changes. SOFT TISSUES: No significant abnormality. ADDITIONAL FINDINGS: None. Signer Name: Gilberto Fay MD Signed: 09/09/2020 3:00 PM Workstation Name: [email or web address]
--- NOTE | 2020-09-09 15:06 | XRay Report ---
XR femur BILAT 2+V INDICATION / CLINICAL INFORMATION: Trauma. COMPARISON: None available. FINDINGS: BONES/JOINT(S): No acute fracture or subluxation. Mild bilateral hip DJD. SOFT TISSUES: No significant abnormality. ADDITIONAL FINDINGS: None. Signer Name: Gilberto Fay MD Signed: 09/09/2020 3:01 PM Workstation Name: [id number]
--- NOTE | 2020-09-09 15:06 | XRay Report ---
XR foot BILAT 3+V INDICATION / CLINICAL INFORMATION: Trauma. COMPARISON: None available. FINDINGS: BONES/JOINT(S): No acute fracture or subluxation. Mild DJD in the first MTP joints bilaterally. SOFT TISSUES: No significant abnormality. ADDITIONAL FINDINGS: None. Signer Name: Gilberto Fay MD Signed: 09/09/2020 3:01 PM Workstation Name: [email or web address]
[2020-09-09] MEDS ORDERED: KETOROLAC 30 MG/1 ML INJ IV ONE (16:09)
[2020-09-09 17:03] LABS: Bilirubin,Urine NEG (Negative); Blood,Urine NEG (Negative); Color,Urine Straw (Yellow); Protein,Urine <15 mg/dL mg/dL (Negative); Urobilinogen,Urine < 2.0 mg/dL (<2.0)
[2020-09-09 17:22] LABS: Amphetamine Screen,Urine Negative; Benzodiazepines Screen,Urine Negative; Cannabinoid Screen,Urine Negative; Cocaine Screen,Urine Negative; Methadone Screen,Urine Negative; Opiate Screen,Urine Negative
[2020-09-09 18:29] VITALS: BP 151/79
--- NOTE | 2020-09-10 11:09 | Electrocardiograph Report ---
[facility] Test Date: 2020-09-09 Test Time: 16:45:50 Pat Name: CHE SANCHEZ Department: Room: Gender: M Dub Room Engineer: CORTNEY : 1960 Requested By: DIONY BILLS Order Number: [id number] Reading MD: Aide Flores Measurements Intervals [place] Rate: 54 P: 22 MT: 157 QRS: 63 QRSD: 74 T: 41 QT: 425 QTc: 404 Interpretive Statements Sinus bradycardia No previous ECG available for comparison Electronically Signed On 09-10-2020 11:09:17 EDT by Aide Flores
== END 2020-09-09 18:30 | disposition home or self-care (01) ==
LOC: ED 11:39
DX: S06.0X9A Concussion with loss of consciousness of unspecified duration, initial encounter (principal); S39.91XA Unspecified injury of abdomen, initial encounter; I70.0 Atherosclerosis of aorta; F17.200 Nicotine dependence, unspecified, uncomplicated; F12.10 Cannabis abuse, uncomplicated; S30.0XXA Contusion of lower back and pelvis, initial encounter; S70.02XA Contusion of left hip, initial encounter; M19.90 Unspecified osteoarthritis, unspecified site; W17.89XA Other fall from one level to another, initial encounter; Y93.89 Activity, other specified; Y92.89 Other specified places as the place of occurrence of the external cause; Y99.8 Other external cause status
CPT/HCPCS: 36415; 70450; 71045; 71260; 72125; 72128; 72131; 72170; 73030; 73521; 73552; 73562; 73590; 73610; 73630; 74177; 80053; 80307; 81001; 82550; 84484; 85025; 85610; 85730; 86850; 86900; 86901; 93005; 96361; 96374; 99291; 99292; J3010; J7030; Q9967; 80320; G0480